=== PATIENT | female | born 1940 | race Caucasian/White ===

== ENCOUNTER → 2019-06-29 | Outpatient (CLI) | payer OTHER ==
[~2019-06-29] VITALS: Ht 154.9 cm; Wt 62.1 kg
[~2019-06-29] MED LIST: ASPIRIN EC81 M1 PO; ATENOLOL 25 MG25 M1 PO; BUSPIRONE HCL5 MG PO; CIPRO250 M1 PO; CIPROFLOXACIN500 M1 PO; ETODOLAC 400 M400 M1 PO; EVISTA PO; FLAGYL500 MG PO; FLEXERIL PO; FOLIC ACID0.8 MG PO; HYDROXYCHLOROQ200 M1 PO; MELOXICAM15 MG PO; METHOTREXATE 22.5 MG PO; MULTIVITAMINS PO; OSTEO BI-FLEX1 EAC1 PO; PROBIOTIC1 EAC7 PO; RITALIN10 MG PO; TRAMADOL HCL E200 MG PO; VITAMIN D-32000 UNIT PO; VITAMIN D35000 UNI2 PO
--- NOTE | 2019-06-30 12:54 | P ---
[facility] [place] [address] [place] [address] PROCEDURE REPORT Name: KIMBERLY GRIFFITHS Room #: REG Feliciano Rojas.#: [id number] Admission: 06/29/19 Attend Phys: Efra Pearson Discharge: Date of : 44 Report #: [id number] THIS REPORT FOR: //name// CC: Efra Belle DATE OF SERVICE: 06/29/2019 PROCEDURE PERFORMED: Upper endoscopy with biopsies. HISTORY OF PRESENT ILLNESS: The patient is a 78-year-old female who was seen in the office by myself on 06/25/2019 with complaints of mid epigastric abdominal pain. She has had chronic back pain over the last year and at one point was taking up to 12 Motrin per day and then sometimes 6 Aleve per day. Later that was discontinued and more recently, she has been on meloxicam as well as long-term aspirin. No previous history of upper endoscopy. She denies any dysphagia. She reports some abdominal bloating. She denies any blood in her stools. A CT scan of the abdomen and pelvis was performed on 01/22/2019, which was essentially negative. Plan is for upper endoscopy. DESCRIPTION OF PROCEDURE: The risks and benefits of the procedure were explained to the patient, those risks including but not limited to bleeding, perforation and the risk of sedation. She understood these risks and gave me informed consent. Sedation was given using propofol per anesthesia. Next, using a standard Olympus upper endoscope, the scope was placed in the patient's mouth and advanced under direct vision through the esophagus, stomach, and into the second portion of the duodenum. The larynx was normal in appearance. The upper and mid esophagus was normal. In the distal esophagus at the GE junction, grade A erosive esophagitis was noted. Overall, there was a moderate gastritis in the upper body and antrum. Biopsies were obtained for H. pylori. On the angularis, a single 1.2 cm clean white based ulcer was noted. No evidence of bleeding. The pylorus was normal and patent. The duodenal bulb, first, and second portion were all normal. Biopsies were obtained to rule out the possibility of celiac sprue. The scope was then withdrawn and the procedure terminated. The patient tolerated the procedure well. IMPRESSION: 1. Gastritis with gastric ulcer on the angularis. 2. Grade A erosive esophagitis. 3. Otherwise, normal upper endoscopy. RECOMMENDATIONS: 1. Await biopsy results. 2. Above findings could explain the patient's abdominal pain. I would recommend long-term PPI therapy, especially as the patient will be on aspirin and meloxicam long-term. We will also add Carafate at this time for the next [address] [address] PROCEDURE REPORT Name: KIMBERLY GRIFFITHS Room #: DEEPA Vann#: [id number] Admission: 06/29/19 Attend Phys: Efra Pearson Discharge: Date of : 44 Report #: [id number] weeks. Thank you for allowing me to participate in her care. ADDENDUM Possible short segment of Goodrich's was noted and biopsies were obtained. <ELECTRONICALLY SIGNED> By: Efra Mason MD 06/30/19 [id number] Efra Mason MD /nt
--- NOTE | 2019-06-30 16:07 | PATH ---
[facility] [place] [address] PATHOLOGY RPT PROCEDURE Name: SHAZIA SRIVASTAVA Room #: REG GUEVARA M.R.#: [id number] Admission: 06/29/19 Date of : 44 Discharge: Report #: [id number] Path Case #: [id number] [facility] Accession Number: [id number] . 01 Material submitted: . PART A: duodenum - BX OF DUODENUM PART B: stomach - BX OF GASTRIC ULCER PART C: esophagus - BX OF DISTAL ESOPHAGUS. Modifiers: distal . 01 Clinical history: . Pre-OP DX: Abdominal pain Post-OP DX: Gastric ulcer, gastritis, esophagitis . 02 Diagnosis: A. Small bowel mucosa, duodenum, rule out sprue, endoscopic biopsy: - No diagnostic abnormalities present. - Negative for villous blunting or increase in intraepithelial lymphocytes. . B. Gastric mucosa, gastric ulcer, rule out H. pylori, endoscopic biopsy: - Helicobacter pylori induced mild to moderate active gastritis. - Negative for intestinal metaplasia, atrophy, or dysplasia. - Moderate number of Helicobacter pylori organisms present on the properly controlled immunohistochemical stain. . C. Gastroesophageal mucosa, distal esophagus, rule out Goodrich's, endoscopic biopsy: - Mild to moderate active esophagitis. - Negative for intestinal metaplasia or dysplasia. (IUV:pit 06/30/2019) QTP 06/30/2019 1305 Local . 02 Electronically signed: . Cris Silva MD, Pathologist NPI- [id number] . 01 Gross description: . A. Received in formalin labeled "Shazia Srivastava, BX of duodenum to rule out sprue," are 4 segments of asif soft tissue measuring 0.9 x 0.6 x 0.3 cm in aggregate dimensions and ranging from 0.3 to 0.4 cm in maximum dimension. The specimen is submitted entirely in cassette A1. . B. Received in formalin labeled "Shazia Srivastava, BX of gastric ulcer to rule out H. pylori," are 4 segments of asif soft tissue measuring 1.4 x 0.9 x 0.2 cm in aggregate dimensions and ranging from 0.4 to 0.8 cm in maximum dimension. The specimen is submitted entirely in cassette B1. . [facility] [address] [place] [address] PATHOLOGY RPT PROCEDURE Name: SHAZIA SRIVASTAVA AFUA Room #: REG CLFeliciano Vann#: [id number] Admission: 06/29/19 Date of : 44 Discharge: Report #: [id number] Path Case #: [id number] C. Received in formalin labeled "Shazia Srivastava, BX of distal esophagus to rule out Goodrich's," is a single segment of asif soft tissue measuring 0.4 cm in maximum dimension. The specimen is entirely submitted in cassette C1. (TSD; 06/29/2019) TOB/TOB 06/29/2019 1944 Local . 02 Pathologist provided ICD-10: K29.60, K20.9, B96.81 . 02 CPT . 158212, 020532, 818499, X69928 Specimen Comment: A courtesy copy of this report has been sent to [phone], [phone] Specimen Comment: [id number] Specimen Comment: Report sent to / DR OLMOS Performed at: [address], [place] [id number] MD Carrillo Ponce MD Phone: [phone] Performed at: [address] [id number] MD Cris Silva MD Phone: [phone]
== END | disposition home or self-care (01) ==
LOC: GI 06:29
DX: R10.13 Epigastric pain (principal); K29.00 Acute gastritis without bleeding; B96.81 Helicobacter pylori [H. pylori] as the cause of diseases classified elsewhere; K22.10 Ulcer of esophagus without bleeding; K21.9 Gastro-esophageal reflux disease without esophagitis; F41.9 Anxiety disorder, unspecified; F17.210 Nicotine dependence, cigarettes, uncomplicated; Z98.890 Other specified postprocedural states; Z79.899 Other long term (current) drug therapy; Z90.49 Acquired absence of other specified parts of digestive tract; Z90.710 Acquired absence of both cervix and uterus; Z96.643 Presence of artificial hip joint, bilateral; Z98.51 Tubal ligation status; Z79.82 Long term (current) use of aspirin
CPT/HCPCS: 62110; 62900